=== PATIENT | male | born 1970 | race Two or more races ===

== ENCOUNTER 2018-08-19 20:15 | Inpatient (IN) | payer OTHER ==
[~2018-08-19] VITALS: Ht 180.3 cm; Wt 79.4 kg
[2018-08-19] MEDS ORDERED: [UNRECOGNIZED DRUG - REMARK] (20:25)
[2018-08-19] MEDS ORDERED: [UNRECOGNIZED DRUG - REMARK] (20:25)
[2018-08-19] MEDS ORDERED: [UNRECOGNIZED DRUG - REMARK] (20:25)
[2018-08-19] MEDS ORDERED: TDAP DIPH,PERTUSS,TET VAC/PF 0.5 ML DISP.SYRIN IM ONE ×2 (20:30→21:10)
[2018-08-19] MEDS ORDERED: PHENYTOIN SODIUM IV 1,000 MG in IV NORMAL SALINE 100 ML IV ONE (21:00)
[2018-08-19] MEDS ORDERED: LEVETIRACETAM IV 500 MG in IV DEXTROSE 5% 100 ML IV ONE (21:00)
[2018-08-19 21:03] LABS: EOSINOPHILS # (AUTO) 0.1 K/uL (0.0-0.7); HEMATOCRIT 47.3 % (36.7-47.1); HEMOGLOBIN 15.7 g/dL (12.5-16.3); LYMPHOCYTES # (AUTO) 1.8 K/uL (20.0-40.0); LYMPHOCYTES % (AUTO) 43.7 % (20.5-51.5); MEAN CORPUSCULAR HEMOGLOBIN 30.7 uug (23.8-33.4); MEAN CORPUSCULAR HGB CONC 33 g/dL (32.5-36.3); MEAN CORPUSCULAR VOLUME 92.4 fL (73.0-96.2); MONOCYTES # (AUTO) 0.4 K/uL (2.0-10.0); MONOCYTES % (AUTO) 9.6 % (0.0-11.0); NEUTROPHILS # (AUTO) 1.8 K/uL (1.8-8.9); NEUTROPHILS % (AUTO) 43.7 % (38.5-71.5); PLATELET COUNT (AUTO) 144 K/uL (152-348); RED BLOOD CELL COUNT(AUTO) 5.12 MIL/uL (4.06-5.63)
[2018-08-19] MEDS ORDERED: PHENYTOIN SODIUM 250 MG/5 ML VIAL IV ONE (21:09)
[2018-08-19] MEDS ORDERED: LEVETIRACETAM 500 MG/5 ML VIAL IV ONE (21:10)
[2018-08-19 21:18] LABS: ETHANOL 529 MG/DL (0-0)
[2018-08-19 21:19] LABS: CARBON DIOXIDE 30 mmol/L (21-32); CHLORIDE 100 mmol/L (98-107); CREATININE 0.9 mg/dL (0.6-1.3); GLUCOSE 130 mg/dL (74-106); POTASSIUM 2.9 mmol/L (3.5-5.1); UREA NITROGEN, BLOOD 5 mg/dL (7-18)
[2018-08-19 21:25] LABS: ALANINE AMINOTRANSFERASE 33 U/L (16-63); ALKALINE PHOSPHATASE 72 U/L (50-136); ASPARTATE AMINOTRANSFERASE 36 U/L (15-37); BILIRUBIN,DIRECT 0.1 mg/dL (0.0-0.2); BILIRUBIN,TOTAL 0.3 mg/dL (0.2-1.0); TOTAL PROTEIN, SERUM 7.3 g/dL (6.4-8.2)
[2018-08-19 21:34] LABS: ACETAMINOPHEN < 2.0 ug/mL (10-30)
[2018-08-19 21:43] LABS: THYROID STIMULATING HORMONE 0.246 mIU/mL (0.358-3.740)
[2018-08-19 21:48] LABS: *BILIRUBIN,URIN NEGATIVE (NEGATIVE); *BLOOD, URINE 1+ (NEGATIVE); *CLARITY,URINE CLEAR (CLEAR); *COLOR,URINE YELLOW (YELLOW); *KETONES,URINE NEGATIVE (NEGATIVE); *UROBILINOGEN,URINE 0.2 E.U./dl (NORMAL); LEUKOCYTE ESTERASE ,URINE NEGATIVE (NEGATIVE); NITRITE, URINE NEGATIVE (NEGATIVE); UGLUCOSE NEGATIVE (NEGATIVE)
[2018-08-19] MEDS ORDERED: HALOPERIDOL LACTATE 5 MG/1 ML VIAL ONE (21:52)
[2018-08-19] MEDS ORDERED: HALOPERIDOL LACTATE 5 MG/1 ML VIAL IV ONE (22:00)
[2018-08-19 22:05] LABS: WBC,URINE 0-3 /HPF (0-3)
[2018-08-19 22:09] LABS: *AMPHETAMINE, URINE NEGATIVE (NEGATIVE); *BARBITURATE, URINE NEGATIVE (NEGATIVE); *CANNABINOID, URINE NEGATIVE (NEGATIVE); *COCCAINE, URINE NEGATIVE (NEGATIVE); *OPIATE, URINE NEGATIVE (NEGATIVE); *PHENCYCLIDINE SCREEN,URINE NEGATIVE (NEGATIVE)
[2018-08-19] MEDS: FOLIC ACID 1 MG in IV DEXTROSE 5% 50 ML IV SCH (23:15)
[2018-08-19] MEDS ORDERED: MAGNESIUM HYDROXIDE 30 ML LIQUID UDC PO PRN (23:15)
[2018-08-19] MEDS: THIAMINE HCL INJ 100 MG in IV DEXTROSE 5% 50 ML IV SCH (23:15)
[2018-08-19] MEDS ORDERED: ACETAMINOPHEN 325 MG TABLET PO PRN (23:15)
[2018-08-19] MEDS ORDERED: Z GUARD REMEDY PASTE 57 GM TUBE TOP PRN (23:15)
[2018-08-19] MEDS ORDERED: POTASSIUM CHLORIDE 100 ML ONE (23:46)
[2018-08-19] MEDS: POTASSIUM CHLORIDE 50 ML IV SCH (23:50)
[2018-08-20] VITALS (23 sets, daily range): BP systolic 114–159; BP diastolic 68–109
[2018-08-20] MEDS: POTASSIUM CHLORIDE 50 ML IV SCH (00:02)
[2018-08-20] MEDS: IV NS 1000 ML 1,000 ML IV PRN ×5 (01:42→19:53)
[2018-08-20] MEDS ORDERED: THIAMINE HCL 200 MG/2 ML VIAL ONE ×2 (02:04→07:50)
[2018-08-20] MEDS ORDERED: FOLIC ACID 5 MG/ML VIAL IV ONE (02:05)
[2018-08-20] MEDS: LORAZEPAM 2 MG/1 ML VIAL IV PRN ×6 (02:08→18:53)
[2018-08-20 04:31] LABS: BASOPHILS % (AUTO) 0.7 % (0.0-2.0); EOSINOPHILS % (AUTO) 0.4 % (0.0-7.0); HEMATOCRIT 46.1 % (36.7-47.1); HEMOGLOBIN 15.4 g/dL (12.5-16.3); LYMPHOCYTES # (AUTO) 1.3 K/uL (20.0-40.0); LYMPHOCYTES % (AUTO) 26.7 % (20.5-51.5); MEAN CORPUSCULAR HEMOGLOBIN 30.9 uug (23.8-33.4); MEAN CORPUSCULAR HGB CONC 33 g/dL (32.5-36.3); MEAN CORPUSCULAR VOLUME 92.5 fL (73.0-96.2); MONOCYTES # (AUTO) 0.4 K/uL (2.0-10.0); MONOCYTES % (AUTO) 8.4 % (0.0-11.0); NEUTROPHILS # (AUTO) 3.1 K/uL (1.8-8.9); NEUTROPHILS % (AUTO) 63.8 % (38.5-71.5); PLATELET COUNT (AUTO) 134 K/uL (152-348); RED BLOOD CELL COUNT(AUTO) 4.99 MIL/uL (4.06-5.63); WHITE BLOOD COUNT (AUTO) 4.9 K/uL (3.6-10.2)
[2018-08-20 04:48] LABS: BILIRUBIN,TOTAL 0.3 mg/dL (0.2-1.0); CREATININE 0.8 mg/dL (0.6-1.3); MAGNESIUM 2.2 mg/dL (1.8-2.4); PHOSPHOROUS 6.3 mg/dL (2.5-4.9); POTASSIUM 3.5 mmol/L (3.5-5.1); TOTAL PROTEIN, SERUM 6.7 g/dL (6.4-8.2)
[2018-08-20 04:55] LABS: THYROID STIMULATING HORMONE 0.185 mIU/mL (0.358-3.740)
[2018-08-20] MEDS: ONDANSETRON 4 MG/2 ML VIAL IV PRN ×2 (07:55→13:49)
[2018-08-20] MEDS: HYDROCODONE/APAP 5-325MG TABLET PO PRN ×3 (07:57→15:42)
[2018-08-20] MEDS ORDERED: hydrALAZINE HCL 20 MG/1 ML VIAL IV PRN (21:00)
[2018-08-20] MEDS ORDERED: NORMAL SALINE FLUSH 10 ML DISP.SYRIN ONE (22:35)
[2018-08-20] MEDS ORDERED: SWABABLE VALVE TRANSFER SET EA MC ONE (22:35)
[2018-08-20] MEDS ORDERED: IOHEXOL 350 100 ML INFUS..BTL ONE (22:35)
[2018-08-20] MEDS ORDERED: IV NORMAL SALINE 250 ML IV ONE (22:35)
[2018-08-20] MEDS: THIAMINE HCL INJ 100 MG in IV DEXTROSE 5% 50 ML IV SCH (23:32)
[2018-08-20] MEDS: FOLIC ACID 1 MG in IV DEXTROSE 5% 50 ML IV SCH (23:34)
[2018-08-21] VITALS (9 sets, daily range): BP systolic 140–157; BP diastolic 90–121
[2018-08-21] MEDS: IV NS 1000 ML 1,000 ML IV PRN (05:49)
[2018-08-21] MEDS: LORAZEPAM 2 MG/1 ML VIAL IV PRN (06:21)
[2018-08-21] MEDS ORDERED: LEVETIRACETAM 500 MG TABLET PO SCH (08:30)
[2018-08-21] MEDS ORDERED: GUAIFENESIN/DEXTROMETHORPHAN 5 ML UDC PO PRN (08:30)
[2018-08-21] MEDS ORDERED: NICOTINE 21 MG/24HR PATCH TD SCH (09:00)
== END 2018-08-21 08:45 | disposition left against medical advice (07) | DRG 55 ==
LOC: ER 20:17 → CCU 23:55
PROVIDERS: ADMIT Internal Medicine; ATTEND Internal Medicine
DX: S06.6X9A Traumatic subarachnoid hemorrhage with loss of consciousness of unspecified duration, initial encounter (principal); G92 Toxic encephalopathy; S02.19XA Other fracture of base of skull, initial encounter for closed fracture; S02.32XA Fracture of orbital floor, left side, initial encounter for closed fracture; E05.90 Thyrotoxicosis, unspecified without thyrotoxic crisis or storm; F10.129 Alcohol abuse with intoxication, unspecified; G40.509 Epileptic seizures related to external causes, not intractable, without status epilepticus; R40.2432 Glasgow coma scale score 3-8, at arrival to emergency department; W19.XXXA Unspecified fall, initial encounter; Y92.480 Sidewalk as the place of occurrence of the external cause; Z59.0 Homelessness; Y90.8 Blood alcohol level of 240 mg/100 ml or more; E87.6 Hypokalemia; M48.02 Spinal stenosis, cervical region; M25.78 Osteophyte, vertebrae
CPT/HCPCS: 36415; 70030-TC; 70450; 70486; 70496; 71045; 72125; 80307; 83605; 83735; 84100; 84443; 85025; 85730; 87040; 87086; 90715; 93005; 93307; A4217; A4663; C1758; G0378; G0480; G0480-TC; J0360; J1165; J1630; J1953; J2060; J2405; J3411; J3480; J3490; J7030; J7050; J7060; Q9967

== ENCOUNTER 2018-08-22 09:59 | Emergency (ER) | payer OTHER ==
[~2018-08-22] VITALS: Ht 188 cm; Wt 73.5 kg
[~2018-08-22 09:59] MED LIST: [UNRECOGNIZED DRUG - REMARK]; [UNRECOGNIZED DRUG - REMARK]; [UNRECOGNIZED DRUG - REMARK]
--- NOTE | 2018-08-22 10:13 | NUR ---
Dr Valero at the bedside for MSE.
--- NOTE | 2018-08-22 10:25 | NUR ---
Jasson, social service director at the bedside for pt's assisstance.
--- NOTE | 2018-08-22 10:36 | NUR ---
10:20am: SW met with patient, per consultation request. Patient is a 48 year old male, who came to the ED today for a swollen/bruised and red/bloody of the white portion of the eye which patient states happened a few days ago while he was shopping at a [employer] store. Patient stated that he was unclear as to how he fell, because he stated that there was no one around him. Patient stated he may have tripped and hit his eye/face on the shopping cart. SW asked patient if he got into an altercation with someone, and patient denied this. Patient is oriented x 4. Patient was cooperative with SW, maintained appropriate eye contact, thoughts/behavior were WNL. Patient reported a long history of ETOH abuse (25 years), with daily use for the past 2-3 years. Patient stated that his choice of drink is vodka and the last time he drank was this morning, 1 glass of vodka. Patient is , and has a 16 year old daughter, but has not seen them for nearly 5 months. Patient stated "I have to be 100 feet away from the house". Patient stated that he has been staying at his father's house or his sister's house, and that this afternoon his sister Scarlett [phone] will be taking him to rehab because "I need to stop this drinking, I miss my family". Patient became tearful when talking about his family and missing his daughter. Patient works as a jeweler. SW offered additional information on detox and rehab programs, but patient stated that his sister will be taking care of everything, and he did not need any additional resources at this time. No further interventions needed at this time. Dr. Valero and TIFFANIE Orozco informed of above.
--- NOTE | 2018-08-22 10:58 | NUR ---
Patient discharged to home in stable conditon. Written and verbal after care instructions given. Patient verbalizes understanding of instructions.
[2018-08-22 10:59] VITALS: BP 133/72
== END 2018-08-22 11:01 | disposition home or self-care (01) ==
LOC: ER 09:59
DX: S02.92XA Unspecified fracture of facial bones, initial encounter for closed fracture (principal); H11.32 Conjunctival hemorrhage, left eye; Z79.899 Other long term (current) drug therapy; W01.198A Fall on same level from slipping, tripping and stumbling with subsequent striking against other object, initial encounter; Y93.89 Activity, other specified; Y92.89 Other specified places as the place of occurrence of the external cause; Y99.8 Other external cause status
CPT/HCPCS: A4663